=== PATIENT | female | born 1985 | race Two or more races ===

== ENCOUNTER 2021-04-26 23:16 | Emergency (ER) | payer MEDICAID ==
[~2021-04-26] VITALS: Ht 162.6 cm; Wt 64.0 kg
[2021-04-27] MEDS ORDERED: LEVETIRACETAM 500MG PREMIX 100 ML IV ONE
[2021-04-27 02:30] VITALS: BP 106/75
[2021-04-27] MEDS ORDERED: KEPP500 MT (02:39)
== END 2021-04-27 02:45 | disposition home or self-care (01) ==
LOC: ER 23:16
DX: G40.909 Epilepsy, unspecified, not intractable, without status epilepticus (principal); Z86.73 Personal history of transient ischemic attack (TIA), and cerebral infarction without residual deficits; Z91.14 Patient's other noncompliance with medication regimen
CPT/HCPCS: 93005; 96365; 99284; J1953